=== PATIENT | female | born 1975 | race Caucasian/White ===

== ENCOUNTER 2018-07-16 09:47 | Emergency (ER) | payer MEDICAID ==
[~2018-07-16] VITALS: Ht 162.6 cm; Wt 80.0 kg
[2018-07-16 09:55] VITALS: BP 116/83; PULSE 70; RESP 18; Ht 162.6 cm; Wt 80.0 kg
[2018-07-16] MEDS ORDERED: KETOROLAC 60 MG INJ IM STA (10:18)
[2018-07-16] MEDS ORDERED: NAPR-985 PO (10:19)
[2018-07-16] MEDS ORDERED: CYCL10TA7 PO (10:19)
[2018-07-16] MEDS ORDERED: HYDR-4011 PO (10:19)
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
== END 2018-07-16 10:51 | disposition home or self-care (01) ==
LOC: FTE 09:47
DX: M54.5 Low back pain (principal)
CPT/HCPCS: 81025; 96372; J1885; Z7502